=== PATIENT | female | born 1940 | race Caucasian/White ===

== ENCOUNTER 2016-06-20 09:33 | Outpatient (CLI) | payer MEDICARE, OTHER | END 2016-06-20 09:34 | disposition home or self-care (01) | DX: E11.9 Type 2 diabetes mellitus without complications (principal) ==

== ENCOUNTER 2016-08-17 05:55 | Day surgery (SDC) | payer MEDICARE, OTHER ==
[2016-08-17] MEDS ORDERED: LACTATED RINGERS 1,000 ML IV ONE (06:57)
[2016-08-17] MEDS ORDERED: fentaNYL 100 MCG/2 ML VIAL IVP ONE (07:26)
[2016-08-17] MEDS ORDERED: MIDAZOLAM 2 MG/2 ML VIAL IVP ONE (07:26)
[2016-08-17 08:26] VITALS: BP 128/66
== END 2016-08-17 05:56 | disposition home or self-care (01) ==
LOC: SDS 05:55
PROVIDERS: ATTEND Surgery
PROC: 0DBM8ZZ Excision of Descending Colon, Via Natural or Artificial Opening Endoscopic (ICD-10-PCS; 2016-08-17)
PROC: 0DBH8ZZ Excision of Cecum, Via Natural or Artificial Opening Endoscopic (ICD-10-PCS; principal; 2016-08-17 07:30)
DX: Z12.11 Encounter for screening for malignant neoplasm of colon (principal); D12.0 Benign neoplasm of cecum; D12.4 Benign neoplasm of descending colon; I10 Essential (primary) hypertension; E78.5 Hyperlipidemia, unspecified; G47.30 Sleep apnea, unspecified; E11.9 Type 2 diabetes mellitus without complications; K64.8 Other hemorrhoids; K64.4 Residual hemorrhoidal skin tags
CPT/HCPCS: 45380; J7120; 88305

== ENCOUNTER 2016-10-11 19:36 | Outpatient (CLI) | payer MEDICARE, OTHER ==
--- NOTE | 2016-10-12 08:27 | Ultrasound Report ---
EXAM: LEFT LOWER EXTREMITY VENOUS ULTRASOUND EXAM DATE: 10/11/2016 07:42 PM. CLINICAL HISTORY: DVT. COMPARISON: None. TECHNIQUE: Real-time sonographic vascular imaging was performed by the theatre director through the lower extremity utilizing both color-flow and Doppler spectral analysis. Multiple ocean import representative static jyoti ges were saved for review. FINDINGS: Common Femoral Vein (CFV): Normal. CFV-GSV Junction: Normal. Profunda Femoral Vein (PFV): Normal. Femoral Vein (FV) Prox: Normal. Femoral Vein (FV) Mid: Normal. Femoral Vein (FV) Dist: Suboptimally visualized. Popliteal Vein: Normal. Posterior Tibial Veins: Suboptimally visualized Peroneal Veins: Not visualized Contralateral Side CFV: Normal. Other: Medial left ankle soft tissue edema. Small ill-defined fluid collection over area of pain in t he deep medial left ankle possibly corresponding to a tendon sheath IMPRESSION: 1. No evidence of DVT 2. Distal superficial femoral vein and posterior tibial veins are suboptimally visualized and the per escobar veins were not visualized. This may be due to technical factors and patient characteristics. 3. Soft tissue edema and small ill-defined fluid collection corresponding to region of pain in the me dial left ankle deep soft tissues questionably associated with a tendon sheath. This could be evaluat ed with MRI as necessary. [facility] Referring Provider Line: [phone] SITE ID: [id number]
== END 2016-10-11 19:37 | disposition home or self-care (01) ==
LOC: DI 19:36
PROVIDERS: ATTEND Family Medicine
DX: M79.9 Soft tissue disorder, unspecified (principal)

== ENCOUNTER 2016-12-18 10:52 | Outpatient (CLI) | payer MEDICARE, OTHER ==
[2016-12-18 19:16] LABS: BASOPHILS % (AUTO) 0.5 %; EOSINOPHILS % (AUTO) 0.5 %; HCT - HEMATOCRIT 40.6 % (37.0-47.0); HGB - HEMOGLOBIN 13.3 g/dL (12.0-16.0); LYMPHOCYTES # (AUTO) 2.1 10^3/uL (1.5-3.5); LYMPHOCYTES % (AUTO) 36.3 %; MEAN CORPUSCULAR HEMOGLOBIN 32.3 pg (27.0-31.0); MEAN CORPUSCULAR HGB CONC 32.9 g/dL (32.0-36.0); MEAN CORPUSCULAR VOLUME 98.2 fL (81.0-99.0); MEAN PLATELET VOLUME 8.5 fL (7.9-10.8); MONOCYTES # (AUTO) 0.4 10^3/uL (0.0-1.0); MONOCYTES % (AUTO) 6.8 %; NEUTROPHILS # (AUTO) 3.2 10^3/uL (1.5-6.6); NEUTROPHILS % (AUTO) 55.9 %; NUCLEATED RED BLOOD CELLS AUTO 0.2 /100WBC; RED BLOOD COUNT 4.13 10^6/uL (4.20-5.40); UNCORRECTED WHITE BLOOD COUNT 5.7 x10^3/uL; WHITE BLOOD COUNT 5.7 x10^3/uL (4.8-10.8)
[2016-12-18 19:41] LABS: ALBUMIN/GLOBULIN RATIO 1.5 (1.0-2.2); BILIRUBIN,TOTAL 0.7 mg/dL (0.2-1.0); BUN - BLOOD UREA NITROGEN 23 mg/dL (6-20); CALCIUM 10.1 mg/dL (8.5-10.3); CARBON DIOXIDE - CO2 26 mmol/L (21-32); CHLORIDE 100 mmol/L (101-111); CHOL/HDL RATIO 3.1 (<4.4); CHOLESTEROL 194 mg/dL; CREATININE 0.7 mg/dL (0.4-1.0); GFR - MDRD 81 (>89); GLUCOSE 144 mg/dL (70-100); HDL CHOLESTEROL 62 mg/dL; LDL/HDL RATIO 1.5 (<4.4); POTASSIUM 4.5 mmol/L (3.5-5.0); SODIUM 137 mmol/L (135-145); TOTAL PROTEIN 7.7 g/dL (6.7-8.2); TRIGLYCERIDES 210 mg/dL; VLDL CHOLESTEROL 42 mg/dL
[2016-12-18 21:30] LABS: HEMOGLOBIN A1C 0.94 g/dL
== END 2016-12-18 10:53 | disposition home or self-care (01) ==
LOC: LAB.WCP 10:52
PROVIDERS: ATTEND Family Medicine
DX: E11.9 Type 2 diabetes mellitus without complications (principal)
CPT/HCPCS: 36415; 80053; 80061; 82043; 83036; 84443; 85025

== ENCOUNTER 2017-03-29 08:00 | Outpatient (CLI) | payer MEDICARE, OTHER ==
[2017-03-29 12:57] LABS: ALBUMIN 4.1 g/dL (3.2-5.5); ALBUMIN/GLOBULIN RATIO 1.4 (1.0-2.2); ALKALINE PHOSPHATASE 75 IU/L (42-121); ALT ALANINE AMINOTRANSFERASE 21 IU/L (10-60); AST ASPARTATE AMINOTRANSFERASE 22 IU/L (10-42); BILIRUBIN,TOTAL 0.5 mg/dL (0.2-1.0); BUN - BLOOD UREA NITROGEN 22 mg/dL (6-20); CALCIUM 9.5 mg/dL (8.5-10.3); CARBON DIOXIDE - CO2 26 mmol/L (21-32); CHLORIDE 105 mmol/L (101-111); CHOL/HDL RATIO 3.6 (<4.4); CHOLESTEROL 172 mg/dL; CREATININE 0.6 mg/dL (0.4-1.0); GFR - MDRD 97 (>89); GLUCOSE 154 mg/dL (70-100); HDL CHOLESTEROL 48 mg/dL; LDL CHOLESTEROL,CALCULATED 75 mg/dL; LDL/HDL RATIO 1.6 (<4.4); SODIUM 138 mmol/L (135-145); TOTAL PROTEIN 7.1 g/dL (6.7-8.2); VLDL CHOLESTEROL 49 mg/dL
[2017-03-29 13:19] LABS: HB2 TOTAL 13.4 g/dL; HEMOGLOBIN A1C 0.82 g/dL; HEMOGLOBIN A1C % 7.7 % (4.6-6.2)
== END 2017-03-29 08:01 | disposition home or self-care (01) ==
LOC: LAB.WCP 08:00
PROVIDERS: ATTEND Family Medicine
DX: E11.9 Type 2 diabetes mellitus without complications (principal)
CPT/HCPCS: 36415; 80053; 80061; 83036; 83721

== ENCOUNTER 2017-04-16 10:12 | Outpatient (CLI) | payer MEDICARE, OTHER ==
--- NOTE | 2017-04-18 13:53 | Mammography Report ---
DIGITAL SCREENING MAMMOGRAM: 04/16/2017 CLINICAL INDICATION: A 76-year-old with history of benign biopsies, for screening. COMPARISON: 03/2016, 05/2012, 03/2011, 03/2010. TECHNIQUE: Routine CC and MLO projections were obtained of the breasts. FINDINGS: Parenchymal tissue within the breasts is predominantly fatty replaced. There are no dominant masses, suspicious microcalcifications, or secondary signs of malignancy. In comparison to the previous studies, there are no significant changes. IMPRESSION: NO MAMMOGRAPHIC EVIDENCE OF MALIGNANCY. NO SIGNIFICANT INTERVAL CHANGES. RECOMMENDATION: Screening mammography is recommended annually. BIRADS category 1 - negative. STANDARD QUALIFYING STATEMENTS: 1. This examination was reviewed with the aid of Computed-Aided Detection (CAD). 2. A negative or benign imaging report should not delay biopsy if clinically suspicious findings are present. Consider surgical consultation if warranted. More than 5% of cancers are not identified by imaging. 3. Dense breasts may obscure an underlying neoplasm. TD: 04/18/2017 13:52
== END 2017-04-16 10:13 | disposition home or self-care (01) ==
LOC: DI 10:12
PROVIDERS: ATTEND Family Medicine
DX: Z12.31 Encounter for screening mammogram for malignant neoplasm of breast (principal)
CPT/HCPCS: 77067

== ENCOUNTER 2017-07-25 08:00 | Outpatient (CLI) | payer MEDICARE, OTHER ==
[2017-07-25 18:51] LABS: BASOPHILS % (AUTO) 0.2 %; EOSINOPHILS % (AUTO) 0.4 %; HGB - HEMOGLOBIN 13.2 g/dL (12.0-16.0); LYMPHOCYTES # (AUTO) 2.2 10^3/uL (1.5-3.5); LYMPHOCYTES % (AUTO) 34.9 %; MEAN CORPUSCULAR HEMOGLOBIN 32.2 pg (27.0-31.0); MEAN CORPUSCULAR HGB CONC 32.8 g/dL (32.0-36.0); MEAN CORPUSCULAR VOLUME 98.2 fL (81.0-99.0); MEAN PLATELET VOLUME 8.5 fL (7.9-10.8); MONOCYTES # (AUTO) 0.4 10^3/uL (0.0-1.0); MONOCYTES % (AUTO) 6.4 %; NEUTROPHILS # (AUTO) 3.6 10^3/uL (1.5-6.6); NEUTROPHILS % (AUTO) 58.1 %; PLT - PLATELET COUNT 220 10^3/uL (130-450); RED BLOOD COUNT 4.09 10^6/uL (4.20-5.40); RED CELL DISTRIBUTION WIDTH 15.3 % (12.0-15.0); WHITE BLOOD COUNT 6.2 x10^3/uL (4.8-10.8)
[2017-07-25 19:05] LABS: ALBUMIN 4.8 g/dL (3.2-5.5); ALBUMIN/GLOBULIN RATIO 1.6 (1.0-2.2); BILIRUBIN,TOTAL 0.8 mg/dL (0.2-1.0); CREATININE 0.6 mg/dL (0.4-1.0); TOTAL PROTEIN 7.8 g/dL (6.7-8.2)
== END 2017-07-25 08:01 ==
LOC: LAB.WCP 08:00
PROVIDERS: ATTEND Family Medicine
DX: R07.89 Other chest pain (principal)
CPT/HCPCS: 36415; 80053; 83690; 84484; 85025

== ENCOUNTER 2017-09-25 15:11 | Outpatient (CLI) | payer MEDICARE, OTHER | END 2017-09-25 15:12 | disposition home or self-care (01) | LOC: SC 15:11 | PROVIDERS: ATTEND Nurse Practitioner Family | DX: G47.33 Obstructive sleep apnea (adult) (pediatric) (principal) | CPT/HCPCS: 99204; G0463; 99212 ==

== ENCOUNTER 2017-09-27 15:27 | Outpatient (CLI) | payer MEDICARE, OTHER ==
[2017-09-27 18:54] LABS: BASOPHILS % (AUTO) 0.5 %; EOSINOPHILS % (AUTO) 0.4 %; HGB - HEMOGLOBIN 12.3 g/dL (12.0-16.0); LYMPHOCYTES # (AUTO) 2.5 10^3/uL (1.5-3.5); LYMPHOCYTES % (AUTO) 32.3 %; MEAN CORPUSCULAR HEMOGLOBIN 32.8 pg (27.0-31.0); MEAN CORPUSCULAR HGB CONC 33.2 g/dL (32.0-36.0); MEAN PLATELET VOLUME 7.8 fL (7.9-10.8); MONOCYTES # (AUTO) 0.6 10^3/uL (0.0-1.0); MONOCYTES % (AUTO) 7.8 %; NEUTROPHILS # (AUTO) 4.6 10^3/uL (1.5-6.6); PLT - PLATELET COUNT 249 10^3/uL (130-450); RED BLOOD COUNT 3.74 10^6/uL (4.20-5.40); RED CELL DISTRIBUTION WIDTH 14.6 % (12.0-15.0); WHITE BLOOD COUNT 7.8 x10^3/uL (4.8-10.8)
[2017-09-27 19:15] LABS: HB2 TOTAL 12.8 g/dL; HEMOGLOBIN A1C 0.9 g/dL; HEMOGLOBIN A1C % 8.6 % (4.6-6.2)
[2017-09-27 19:18] LABS: ALBUMIN 4.4 g/dL (3.2-5.5); ALBUMIN/GLOBULIN RATIO 1.3 (1.0-2.2); BILIRUBIN,TOTAL 0.6 mg/dL (0.2-1.0); CALCIUM 9.6 mg/dL (8.5-10.3); CREATININE 0.7 mg/dL (0.4-1.0); TOTAL PROTEIN 7.7 g/dL (6.7-8.2)
== END 2017-09-27 15:28 ==
LOC: LAB.WCP 15:27
PROVIDERS: ATTEND Family Medicine
DX: E11.9 Type 2 diabetes mellitus without complications (principal)
CPT/HCPCS: 36415; 80053; 83036; 85025

== ENCOUNTER 2017-12-27 10:12 | Outpatient (CLI) | payer MEDICARE, OTHER ==
[2017-12-27 19:53] LABS: BASOPHILS % (AUTO) 0.3 %; EOSINOPHILS % (AUTO) 0.5 %; HGB - HEMOGLOBIN 12.1 g/dL (12.0-16.0); LYMPHOCYTES % (AUTO) 34.4 %; MEAN CORPUSCULAR HEMOGLOBIN 31.7 pg (27.0-31.0); MEAN CORPUSCULAR HGB CONC 32.9 g/dL (32.0-36.0); MEAN CORPUSCULAR VOLUME 96.3 fL (81.0-99.0); MEAN PLATELET VOLUME 8.5 fL (7.9-10.8); MONOCYTES # (AUTO) 0.5 10^3/uL (0.0-1.0); MONOCYTES % (AUTO) 8.2 %; NEUTROPHILS # (AUTO) 3.2 10^3/uL (1.5-6.6); NEUTROPHILS % (AUTO) 56.6 %; PLT - PLATELET COUNT 226 10^3/uL (130-450); RED BLOOD COUNT 3.82 10^6/uL (4.20-5.40); WHITE BLOOD COUNT 5.7 x10^3/uL (4.8-10.8)
[2017-12-27 20:04] LABS: HB2 TOTAL 12.3 g/dL; HEMOGLOBIN A1C 0.81 g/dL; HEMOGLOBIN A1C % 8.2 % (4.6-6.2)
[2017-12-27 20:12] LABS: ALBUMIN 4.2 g/dL (3.2-5.5); ALBUMIN/GLOBULIN RATIO 1.4 (1.0-2.2); ALKALINE PHOSPHATASE 78 IU/L (42-121); ALT ALANINE AMINOTRANSFERASE 23 IU/L (10-60); AST ASPARTATE AMINOTRANSFERASE 23 IU/L (10-42); BILIRUBIN,TOTAL 0.6 mg/dL (0.2-1.0); BUN - BLOOD UREA NITROGEN 29 mg/dL (6-20); CALCIUM 9.6 mg/dL (8.5-10.3); CARBON DIOXIDE - CO2 24 mmol/L (21-32); CHLORIDE 102 mmol/L (101-111); CHOL/HDL RATIO 3.3 (<4.4); CHOLESTEROL 181 mg/dL; CREATININE 0.6 mg/dL (0.4-1.0); GFR - MDRD 97 (>89); GLUCOSE 202 mg/dL (70-100); HDL CHOLESTEROL 55 mg/dL; LDL CHOLESTEROL,CALCULATED 66 mg/dL; LDL/HDL RATIO 1.2 (<4.4); SODIUM 137 mmol/L (135-145); TOTAL PROTEIN 7.3 g/dL (6.7-8.2); URIC ACID 4.7 mg/dL (2.6-7.2); VLDL CHOLESTEROL 60 mg/dL
== END 2017-12-27 10:13 | disposition home or self-care (01) ==
LOC: LAB.WCP 10:12
PROVIDERS: ATTEND Family Medicine
DX: E11.9 Type 2 diabetes mellitus without complications (principal); M10.072 Idiopathic gout, left ankle and foot
CPT/HCPCS: 36415; 80053; 80061; 82043; 83036; 83721; 84550; 85025

== ENCOUNTER 2018-03-26 10:15 | Outpatient (CLI) | payer MEDICARE, OTHER ==
[2018-03-26 13:05] LABS: HB2 TOTAL 11.6 g/dL; HEMOGLOBIN A1C 0.74 g/dL
[2018-03-26 13:13] LABS: CALCIUM 9.5 mg/dL (8.5-10.3); CREATININE 0.7 mg/dL (0.4-1.0)
== END 2018-03-26 23:59 | disposition home or self-care (01) ==
LOC: LAB.WCP 10:15
PROVIDERS: ATTEND Family Medicine
DX: E11.9 Type 2 diabetes mellitus without complications (principal)
CPT/HCPCS: 36415; 80048; 82043; 83036

== ENCOUNTER 2018-06-13 13:47 | Outpatient (CLI) | payer MEDICARE, OTHER ==
--- NOTE | 2018-06-13 15:48 | XRAY Report ---
Reason: UNSPECIFIED FALL,LOW BACK PAIN ACUTE Procedure Date: 06/13/2018 Accession Number: [id number] / [id number] Procedure: WCP - Lumbar Spine 2 View CPT Code: FULL RESULT: EXAM: LUMBOSACRAL SPINE RADIOGRAPHY EXAM DATE: 06/13/2018 01:58 PM. CLINICAL HISTORY: Unspecified fall, low back pain, acute. COMPARISONS: None. TECHNIQUE: 2 views. FINDINGS: The examination is underpenetrated limiting evaluation. Maximum generator output was utilized. Alignment: Suggestion of mild dextroconvex lower lumbar spine scoliosis, centered about L4-L5. No listhesis. Bones: Five pfe-hfa-jqaawdl lumbar vertebral bodies are present. The bones are qualitatively osteopenic; this limits evaluation for underlying fractures or masses. No fracture is detected. Disks: Mild multilevel disk space narrowing with marginal osteophytosis. Facets: No degenerative changes. Sacroiliac Joints: Unremarkable. Soft Tissues: Calcifications of the aorta. IMPRESSION: Limited examination with mild multilevel degenerative disease. [facility]
== END 2018-06-13 13:48 | disposition home or self-care (01) ==
LOC: DI.WCP 13:47
PROVIDERS: ATTEND Family Medicine
DX: M51.37 Other intervertebral disc degeneration, lumbosacral region (principal); E11.9 Type 2 diabetes mellitus without complications
CPT/HCPCS: 36415; 72100; 83036

== ENCOUNTER 2018-06-13 14:28 | Outpatient (CLI) | payer MEDICARE, OTHER ==
[2018-06-13 21:25] LABS: HB2 TOTAL 12.3 g/dL; HEMOGLOBIN A1C 0.82 g/dL; HEMOGLOBIN A1C % 8.3 % (4.6-6.2)
== END 2018-06-13 14:29 | disposition home or self-care (01) ==
LOC: LAB.WCP 14:28
PROVIDERS: ATTEND Family Medicine
DX: E11.9 Type 2 diabetes mellitus without complications (principal)
CPT/HCPCS: 36415; 83036

== ENCOUNTER 2018-10-28 08:00 | Outpatient (CLI) | payer MEDICARE, OTHER ==
[2018-10-28 17:19] LABS: HGB - HEMOGLOBIN 11.9 g/dL (12.0-16.0); MEAN CORPUSCULAR HEMOGLOBIN 29.7 pg (27.0-31.0); MEAN CORPUSCULAR HGB CONC 31.7 g/dL (32.0-36.0); MEAN CORPUSCULAR VOLUME 93.5 fL (81.0-99.0); MEAN PLATELET VOLUME 9.6 fL (7.9-10.8); RED BLOOD COUNT 4.01 10^6/uL (4.20-5.40); RED CELL DISTRIBUTION WIDTH 15.3 % (12.0-15.0); WHITE BLOOD COUNT 8.9 x10^3/uL (4.8-10.8)
[2018-10-28 17:27] LABS: CALCIUM 9.2 mg/dL (8.5-10.3); CREATININE 0.9 mg/dL (0.4-1.0)
[2018-10-28 17:35] LABS: HB2 TOTAL 12.2 g/dL; HEMOGLOBIN A1C 0.74 g/dL; HEMOGLOBIN A1C % 7.7 % (4.6-6.2)
== END 2018-10-28 23:59 | disposition home or self-care (01) ==
LOC: LAB 08:00
PROVIDERS: ATTEND Family Medicine
DX: E11.9 Type 2 diabetes mellitus without complications (principal); R07.9 Chest pain, unspecified
CPT/HCPCS: 36415; 80048; 83036; 83880; 84484; 85027

== ENCOUNTER 2018-10-28 09:00 | Outpatient (CLI) | payer MEDICARE, OTHER ==
--- NOTE | 2018-10-29 15:27 | XRAY Report ---
Reason: CHEST PAIN Procedure Date: 10/28/2018 Accession Number: [id number] / [id number] Procedure: WCP - Chest 2 View X-Ray CPT Code: 50795 FULL RESULT: EXAM: CHEST RADIOGRAPHY EXAM DATE: 10/28/2018 03:56 PM. CLINICAL HISTORY: Chest pain. COMPARISON: CHEST 2 VIEW PA/LAT 06/07/2017 3:48 PM. TECHNIQUE: 2 views. FINDINGS: Lungs/Pleura: No focal opacities evident. No pleural effusion. No pneumothorax. Normal volumes. Mediastinum: Heart and mediastinal contours are unremarkable. Other: None. IMPRESSION: No acute consolidation is identified. [facility]
== END 2018-10-28 23:59 | disposition home or self-care (01) ==
LOC: DI.WCP 09:00 → EDSTATUS 13:19 → DI.WCP 23:59
PROVIDERS: ATTEND Family Medicine
DX: R07.9 Chest pain, unspecified (principal)
CPT/HCPCS: 71046

== ENCOUNTER 2019-01-17 08:00 | Outpatient (CLI) | payer MEDICARE, OTHER ==
[2019-01-17 18:58] LABS: CREATININE 0.9 mg/dL (0.4-1.0)
[2019-01-17 19:24] LABS: HB2 TOTAL 12.3 g/dL; HEMOGLOBIN A1C 0.88 g/dL; HEMOGLOBIN A1C % 8.7 % (4.6-6.2)
== END 2019-01-17 23:59 | disposition home or self-care (01) ==
LOC: LAB.WCP 08:00
PROVIDERS: ATTEND Family Medicine
DX: I10 Essential (primary) hypertension (principal); E11.9 Type 2 diabetes mellitus without complications
CPT/HCPCS: 36415; 80048; 83036

== ENCOUNTER 2019-01-28 15:51 | Outpatient (CLI) | payer MEDICARE, OTHER ==
[2019-01-28 16:57] VITALS: BP 140/70
--- NOTE | 2019-01-28 16:57 | SLEEP CARE CONSULTATION ---
Information from patient questionnaire entered by Yanelis Bonilla. I have reviewed and concur with the information entered by Yanelis Bonilla. This document represents the service I personally performed and the decisions made by me, Merced Amador, RN, MSN, FIELD [employer] OFFICER. History of Present Illness Previous diagnosis: Moderate, Obstructive Sleep Apnea-Hypopnea Syndrome AHI: 20.3 Reason for follow up: annual Equipment obtained from: [employer] (No supplies since set up in 2018. She has been using CPAP nightly since.) Mask style: Nasal (Dreamwear) Mask brand: Respironics Backup mask available: Yes Last cushion change: 6 weeks ago Prior sleep studies: Yes CPAP Compliance Data - Data Reviewed with Patient Average duration of nightly device use: 7H 58M Compliance rate %: 99.4 Current pressure setting (cmH2O): 10-15 Humidity settin Heated hose settin Average residual AHI: 1.4 Average large leak: 28s Subjective Patient concerns: reports: mask leak noise (occasionally), other (air too warm ). denies: aerophagia, mask discomfort, air blowing in eyes, condensation in mask/hose, nasal congestion, dry mouth, nose, throat, epistaxis Observed to snore while using device: No Current pressure setting perceived as: comfortable On therapy, patient: reports: sleeping better (she is unable to sleep without CPAP), awakening more refreshed, being more awake and alert during the day, more rested overall. denies: drowsiness while driving Initial [place] Sleepiness Scale score: 4 Current [place] Sleepiness Scale score: 9 Allergies and Home Medications Known drug allergies: Yes (see list) Home medication list reviewed: Yes Allergy and home medication list: Medication Name (generic/name brand) Strength & Dosage Fish Oil Concentrate 1000mg cap two daily Zyrtec Allergy 10mg tab one daily Allopurinol 300mg tab one daily Atorvastatin Calcium 40mg tab one daily Losartan Potassium 100mg tab one daily in the morning metoprolol succinate 25mg daily Lantus Solostar 100unit/ml SQ Pen-Injector Inject 20 units SQ daily in the pm Novolog Flex pen 100 unit/ml SQ Pen inject Inject 8 units SQ with dinner only Furosemide 40mg tab twice a day Potassium Chloride Jennifer ER 20meq tab one daily Wellbutrin SR 150mg tab one three times daily ProAir HFA 108 (90 base) mcg/act Two puffs every 4 hours prn wheeze Aspirin EC 81 mg tab one daily Omeprazole DR 20mg cap one daily Review of Systems Review of systems same as previous: No (medications changes after cardiac studies ) Physical Exam Blood Pressure: 140/70 Cuff size: long Heart Rate: 77 O2 Saturation: 95 Height: 5 ft 3 in Weight: 287 lb 6.4 oz Weight change since last visit: lost 6 pounds Body Mass Index: 50.9 BMI Classification: Obesity Class 3 Impression and Plan 1. Obstructive Sleep Apnea-Hypopnea Syndrome, moderate, with good treatment compliance and good apnea control. On CPAP therapy, the patient has better sleep quality and is more rested overall. Patient would like to transfer to [facility] where her spouse goes. She has not had supplies replaced since set up with [employer]. She had some spares to use. A [facility]O prescription will be made for transfer. To reduce hose warmth, I showed her how to adjust on a sample CPAP. Printed instructions given. She has lost some weight and praised for weight loss. Continued weight loss will reduce her apnea risk and CPAP pressure requirements as well as lower health risks associated with obesity. Her autoCPAP range could accomodate some more weight loss. Symptoms to report for pressure adjustment discussed. Patient's apnea severity and rationale for treatment to reduce apnea, improve sleep quality and reduce cardiovascular and cerebrovascular events was reviewed. I also reviewed the benefit of consistent device use of CPAP for hypertension, diabetes, depression/anxiety. * Continue autoCPAP pressure at [id number] * Transfer of care * Notify me if snoring with mask or feeling that the pressure is too much or too little * Continue to lose weight * Return for follow up in 1 year , or sooner if concerns arise I spent 100% of this 25 minute visit face to face with the patient with greater than 50% of this was spent time counseling the patient and coordination of care.
== END 2019-01-28 15:52 | disposition home or self-care (01) ==
LOC: SC 15:51
PROVIDERS: ATTEND Nurse Practitioner Family
DX: G47.33 Obstructive sleep apnea (adult) (pediatric) (principal); E66.9 Obesity, unspecified; Z68.43 Body mass index [BMI] 50.0-59.9, adult
CPT/HCPCS: 99214; G0463; 99212

== ENCOUNTER 2019-01-29 09:00 | Outpatient (CLI) | payer MEDICARE, OTHER ==
[2019-01-29 18:35] LABS: BASOPHILS % (AUTO) 0.3 %; EOSINOPHILS % (AUTO) 0.6 %; HGB - HEMOGLOBIN 12.4 g/dL (12.0-16.0); LYMPHOCYTES # (AUTO) 2.4 10^3/uL (1.5-3.5); LYMPHOCYTES % (AUTO) 34.2 %; MEAN CORPUSCULAR HEMOGLOBIN 30.4 pg (27.0-31.0); MEAN CORPUSCULAR HGB CONC 30.8 g/dL (32.0-36.0); MEAN CORPUSCULAR VOLUME 98.5 fL (81.0-99.0); MEAN PLATELET VOLUME 10.3 fL (7.9-10.8); MONOCYTES # (AUTO) 0.5 10^3/uL (0.0-1.0); MONOCYTES % (AUTO) 7.7 %; NEUTROPHILS % (AUTO) 56.5 %; PLT - PLATELET COUNT 253 10^3/uL (130-450); RED BLOOD COUNT 4.08 10^6/uL (4.20-5.40); RED CELL DISTRIBUTION WIDTH 15.1 % (12.0-15.0)
[2019-01-29 18:55] LABS: ALBUMIN 4.4 g/dL (3.2-5.5); ALBUMIN/GLOBULIN RATIO 1.3 (1.0-2.2); BILIRUBIN,TOTAL 0.3 mg/dL (0.2-1.0); CALCIUM 9.5 mg/dL (8.5-10.3); CREATININE 0.9 mg/dL (0.4-1.0); TOTAL PROTEIN 7.9 g/dL (6.7-8.2); URIC ACID 5.2 mg/dL (2.6-7.2)
== END 2019-01-29 23:59 | disposition home or self-care (01) ==
LOC: LAB.WCP 09:00
PROVIDERS: ATTEND Physician Assistant
DX: M10.9 Gout, unspecified (principal)
CPT/HCPCS: 36415; 80053; 84550; 85025; 85651

== ENCOUNTER 2019-01-29 15:05 | Outpatient (CLI) | payer MEDICARE, OTHER ==
--- NOTE | 2019-01-30 13:23 | XRAY Report ---
Reason: RIGHT 5TH TOE PAIN Procedure Date: 01/29/2019 Accession Number: [id number] / [id number] Procedure: WCP - Toe(s) RT CPT Code: Final Report FULL RESULT: EXAM: RIGHT TOE RADIOGRAPHY EXAM DATE: 01/29/2019 03:05 PM. CLINICAL HISTORY: RIGHT 5TH TOE PAIN. COMPARISON: None. TECHNIQUE: 3 views. FINDINGS: Bones: No fractures or bone lesions. Joints: Mild/moderate DJD at the first MTP joint and DIP joints of the second through fourth digits. Soft Tissues: Unremarkable. IMPRESSION: 1. No acute osseous abnormality. [facility]
== END 2019-01-29 23:59 | disposition home or self-care (01) ==
LOC: DI.WCP 15:05
PROVIDERS: ATTEND Physician Assistant
DX: M79.674 Pain in right toe(s) (principal); M10.9 Gout, unspecified
CPT/HCPCS: 36415; 73660; 80053; 84550; 85025; 85651

== ENCOUNTER 2019-04-17 10:11 | Outpatient (CLI) | payer MEDICARE, OTHER ==
[2019-04-17 12:52] LABS: BASOPHILS % (AUTO) 0.3 %; EOSINOPHILS % (AUTO) 0.5 %; HGB - HEMOGLOBIN 12.8 g/dL (12.0-16.0); LYMPHOCYTES # (AUTO) 2.1 10^3/uL (1.5-3.5); LYMPHOCYTES % (AUTO) 31.7 %; MEAN CORPUSCULAR HEMOGLOBIN 30.3 pg (27.0-31.0); MEAN CORPUSCULAR VOLUME 97.6 fL (81.0-99.0); MEAN PLATELET VOLUME 10.4 fL (7.9-10.8); MONOCYTES # (AUTO) 0.5 10^3/uL (0.0-1.0); MONOCYTES % (AUTO) 6.9 %; NEUTROPHILS % (AUTO) 60.1 %; PLT - PLATELET COUNT 256 10^3/uL (130-450); RED BLOOD COUNT 4.23 10^6/uL (4.20-5.40); RED CELL DISTRIBUTION WIDTH 14.7 % (12.0-15.0); WHITE BLOOD COUNT 6.6 x10^3/uL (4.8-10.8)
[2019-04-17 13:23] LABS: HB2 TOTAL 13.6 g/dL; HEMOGLOBIN A1C 1.11 g/dL; HEMOGLOBIN A1C % 9.6 % (4.6-6.2)
[2019-04-17 13:33] LABS: FERRITIN 16.6 ng/mL (11.0-306.8)
[2019-04-17 14:50] LABS: % IRON SATURATION 12 % (20-50); ALBUMIN 4.4 g/dL (3.2-5.5); ALBUMIN/GLOBULIN RATIO 1.3 (1.0-2.2); ALKALINE PHOSPHATASE 84 IU/L (42-121); ALT ALANINE AMINOTRANSFERASE 18 IU/L (10-60); AST ASPARTATE AMINOTRANSFERASE 22 IU/L (10-42); BILIRUBIN,TOTAL 0.5 mg/dL (0.2-1.0); BUN - BLOOD UREA NITROGEN 36 mg/dL (6-20); CALCIUM 9.9 mg/dL (8.5-10.3); CARBON DIOXIDE - CO2 25 mmol/L (21-32); CHLORIDE 100 mmol/L (101-111); CHOL/HDL RATIO 3.4 (<4.4); CHOLESTEROL 199 mg/dL; GFR - MDRD 54 (>89); GLUCOSE 221 mg/dL (70-100); HDL CHOLESTEROL 59 mg/dL; IRON 59 ug/dL (28-170); LDL CHOLESTEROL,CALCULATED 75 mg/dL; LDL/HDL RATIO 1.3 (<4.4); SODIUM 137 mmol/L (135-145); TOTAL IRON BINDING CAPACITY 512 ug/dL (250-450); TOTAL PROTEIN 7.8 g/dL (6.7-8.2); TRANSFERRIN 366 mg/dL (192-382); VLDL CHOLESTEROL 65 mg/dL
[2019-04-17 19:19] LABS: CREATININE,URINE 39.1 mg/dL
[2019-04-17 19:21] LABS: MICROALBUMIN,URINE < 0.2 mg/dL (0-300.0)
== END 2019-04-17 23:59 | disposition home or self-care (01) ==
LOC: LAB.WCP 10:11
PROVIDERS: ATTEND Family Medicine
DX: E11.9 Type 2 diabetes mellitus without complications (principal); D64.9 Anemia, unspecified
CPT/HCPCS: 36415; 80053; 80061; 82043; 82570; 82728; 83036; 83540; 83721; 84443; 84466; 85025

== ENCOUNTER 2020-05-03 08:13 | Outpatient (CLI) | payer MEDICARE, OTHER ==
--- NOTE | 2020-05-03 12:59 | XRAY Report ---
PROCEDURE: Cervical Spine 2 View INDICATIONS: ACUTE NECK PX TECHNIQUE: 4 view(s) of the cervical spine were acquired. COMPARISON: None. FINDINGS: Bones: No fractures or dislocations to the T1 level. The lateral masses of C1 appear intact on the odontoid view. Trace anterolisthesis C2 on 3, C3 on 4, and otherwise straightening of the normal cer vical lordosis. Moderate multilevel disc height loss and endplate osteophytes. Bilateral facet hypert rophy, most severe in the upper cervical spine. No suspicious bony lesions. Soft tissues: No prevertebral soft tissue swelling. IMPRESSION: 1. Upper cervical facet arthropathy results in trace multilevel spondylolisthesis. 2. Multilevel disc degeneration and endplate osteophytosis. 3. Consider MRI for further assessment of central canal and neural foramen. Reviewed by: Joana Peters MD on 05/03/2020 12:58 PM PST Approved by: Joana Peters MD on 05/03/2020 12:58 PM [facility] Station ID: [id number]
== END 2020-05-03 08:14 | disposition home or self-care (01) ==
LOC: DI.N 08:13
PROVIDERS: ATTEND Family Medicine
DX: M47.812 Spondylosis without myelopathy or radiculopathy, cervical region (principal); M43.12 Spondylolisthesis, cervical region; M50.30 Other cervical disc degeneration, unspecified cervical region; E11.9 Type 2 diabetes mellitus without complications; M10.9 Gout, unspecified
CPT/HCPCS: 36415; 80053; 80061; 82043; 82570; 83036; 83721; 84443; 84550; 85025

== ENCOUNTER 2020-05-03 08:16 | Outpatient (CLI) | payer MEDICARE, OTHER ==
[2020-05-03 11:42] LABS: BASOPHILS % (AUTO) 0.3 %; EOSINOPHILS % (AUTO) 0.5 %; HCT - HEMATOCRIT 40.1 % (37.0-47.0); HGB - HEMOGLOBIN 12.7 g/dL (12.0-16.0); LYMPHOCYTES % (AUTO) 35.2 %; MEAN CORPUSCULAR HEMOGLOBIN 32.7 pg (27.0-31.0); MEAN CORPUSCULAR HGB CONC 31.7 g/dL (32.0-36.0); MEAN CORPUSCULAR VOLUME 103.4 fL (81.0-99.0); MEAN PLATELET VOLUME 10.3 fL (7.9-10.8); MONOCYTES # (AUTO) 0.5 10^3/uL (0.0-1.0); MONOCYTES % (AUTO) 8.1 %; NEUTROPHILS # (AUTO) 3.2 10^3/uL (1.5-6.6); NEUTROPHILS % (AUTO) 55.4 %; PLT - PLATELET COUNT 209 10^3/uL (130-450); RED BLOOD COUNT 3.88 10^6/uL (4.20-5.40); RED CELL DISTRIBUTION WIDTH 13.7 % (12.0-15.0); WHITE BLOOD COUNT 5.8 x10^3/uL (4.8-10.8)
[2020-05-03 12:03] LABS: ALBUMIN 4.1 g/dL (3.2-5.5); ALBUMIN/GLOBULIN RATIO 1.2 (1.0-2.2); ALKALINE PHOSPHATASE 83 IU/L (42-121); ALT ALANINE AMINOTRANSFERASE 25 IU/L (10-60); AST ASPARTATE AMINOTRANSFERASE 25 IU/L (10-42); BILIRUBIN,TOTAL 0.7 mg/dL (0.2-1.0); BUN - BLOOD UREA NITROGEN 18 mg/dL (6-20); CALCIUM 9.7 mg/dL (8.5-10.3); CARBON DIOXIDE - CO2 25 mmol/L (21-32); CHLORIDE 102 mmol/L (101-111); CHOL/HDL RATIO 4.9 (<4.4); CHOLESTEROL 265 mg/dL; CREATININE 0.9 mg/dL (0.4-1.0); GFR - MDRD 60 (>89); GLUCOSE 192 mg/dL (70-100); HDL CHOLESTEROL 54 mg/dL; LDL CHOLESTEROL,CALCULATED 153 mg/dL; LDL/HDL RATIO 2.8 (<4.4); POTASSIUM 4.3 mmol/L (3.5-5.0); SODIUM 139 mmol/L (135-145); TOTAL PROTEIN 7.4 g/dL (6.7-8.2); TRIGLYCERIDES 290 mg/dL; URIC ACID 5.6 mg/dL (2.6-7.2); VLDL CHOLESTEROL 58 mg/dL
[2020-05-03 12:05] LABS: CREATININE,URINE 44.6 mg/dL; MICROALBUMIN,URINE < 0.2 mg/dL (0-300.0)
[2020-05-03 12:10] LABS: THYROID STIMULATING HORMONE 1.91 uIU/mL (0.34-5.60)
[2020-05-03 12:39] LABS: ESTIMATED AVERAGE GLUCOSE 200 mg/dL (70-100); HEMOGLOBIN A1c% 8.6 % (4.27-6.07)
== END 2020-05-03 08:17 | disposition home or self-care (01) ==
LOC: LAB.N 08:16
PROVIDERS: ATTEND Family Medicine
DX: E11.9 Type 2 diabetes mellitus without complications (principal); M10.9 Gout, unspecified
CPT/HCPCS: 36415; 80053; 80061; 82043; 82570; 83036; 83721; 84443; 84550; 85025

== ENCOUNTER 2020-05-06 09:01 | Outpatient (CLI) | payer MEDICARE, OTHER ==
[2020-05-06 09:30] VITALS: BP 149/83
--- NOTE | 2020-05-06 09:30 | SLEEP CARE CONSULTATION ---
Information from patient questionnaire entered by Jessie Romero. I have reviewed and concur with the information entered by Jessie Romero. This document represents the service I personally performed and the decisions made by me, Salma Schmitt ARNP. History of Present Illness Service Date and Time: 05/06/2020 0901 Previous diagnosis: Moderate, Obstructive Sleep Apnea-Hypopnea Syndrome AHI: 20.3 (in 2011)(10.8 in 2005) Reason for follow up: annual (last seen 01/2019) Equipment type: CPAP Equipment obtained from: [employer] (getting supplies okay sometimes, call all the time) Mask style: Nasal (Dreamwear) Backup mask available: Yes (old mask) Last cushion change: 2 months Prior sleep studies: Yes Year and Where: 2011 and 2005 - [facility] Type of Sleep Study: Polysomnography HPI additional information: DEBBY FERNANDEZ was diagnosed to have moderate, AHI 20.3, obstructive sleep apnea-hypopnea syndrome and returned today for CPAP therapy annual follow-up. CPAP Compliance Data - Data Reviewed with Patient Average duration of nightly device use: 8 hr 3 min Compliance rate %: 97.8 (180 days) Current pressure setting (cmH2O): 10-15 Humidity settin Heated hose settin Average residual AHI: 1.5 Average large leak: 0 Subjective Patient concerns: denies: aerophagia, mask discomfort, air blowing in eyes, mask leak noise, condensation in mask/hose, nasal congestion, dry mouth, nose, throat, epistaxis, other Observed to snore while using device: No (don't think so) Current pressure setting perceived as: comfortable On therapy, patient: reports: sleeping better, awakening more refreshed, being more awake and alert during the day, more rested overall. denies: drowsiness while driving Initial [place] Sleepiness Scale score: 12 (in 2010) Current [place] Sleepiness Scale score: 10 Allergies and Home Medications Home medication list reviewed: Yes (no changes) Review of Systems Review of systems same as previous: Yes (no changes) Physical Exam Blood Pressure: 149/83 Cuff size: wrist Heart Rate: 74 O2 Saturation: 98 Height: 5 ft 3 in Weight: 290 lb Body Mass Index: 51.3 BMI Classification: Morbidly Obese Impression and Plan 1. Obstructive Sleep Apnea-Hypopnea Syndrome, moderate, with good treatment compliance and good apnea control. On CPAP therapy, the patient has better sleep quality and is more rested overall. She recently lost a dear friend and is having a hard time dealing with her loss. She was her advocate during her health challenges and with her constantly before she . I advised her to give herself time to grieve. She has no issues or concerns with CPAP use. Patient currently patients BMI is 51.3. Obesity increases the risk of apnea, CPAP pr essure requirements and overall health risks especially cardiovascular and diabetes. Thus patient is advised to lose weight. Weight loss can be done with reducing portion size, reducing refined foods and balancing content with vegetables, fruit and whole grain foods. The patient's CPAP pressure range should accommodate some weight loss. Symptoms to report for additional pressure adjustment discussed. Patient's apnea severity and rationale for treatment to reduce apnea, improve sleep quality and reduce cardiovascular and cerebrovascular events was reviewed. I also reviewed the benefit of consistent device use of CPAP for hypertension, diabetes, and depression/anxiety. * Continue auto CPAP pressure at 10-15 cmH2O * Notify me if snoring with mask or feeling that the pressure is too much or too little * Attempt to lose weight * Call this office if any problems using CPAP * Return for follow up in 1 year, or sooner if concerns arise Counseling Topics: Spare mask, Weight loss health impact, Activity level Visit Type: In Office Time Spent with Patient (minutes): 20 Provider Statement: I spent 100% of the Face to Face Visit with the patient with greater than 50% spent counseling the patient and coordination of care.
== END 2020-05-06 09:02 | disposition home or self-care (01) ==
LOC: SC 09:01
PROVIDERS: ATTEND Nurse Practitioner Family
DX: G47.33 Obstructive sleep apnea (adult) (pediatric) (principal); E66.01 Morbid (severe) obesity due to excess calories; Z68.43 Body mass index [BMI] 50.0-59.9, adult
CPT/HCPCS: 99213; G0463; 99212

== ENCOUNTER 2020-07-26 | Outpatient (CLI) | payer MEDICARE, OTHER | END 2020-07-26 23:59 | disposition short-term general hospital (02) | DX: R07.9 Chest pain, unspecified (principal) | CPT/HCPCS: A0425; A0429; A0888 ==

== ENCOUNTER 2020-07-29 08:00 | Outpatient (CLI) | payer MEDICARE, OTHER ==
[2020-07-29 12:30] LABS: ESTIMATED AVERAGE GLUCOSE 203 mg/dL (70-100); HEMOGLOBIN A1c% 8.7 % (4.27-6.07)
[2020-07-29 12:34] LABS: ALBUMIN 4.3 g/dL (3.2-5.5); ALBUMIN/GLOBULIN RATIO 1.4 (1.0-2.2); ALKALINE PHOSPHATASE 92 IU/L (42-121); ALT ALANINE AMINOTRANSFERASE 19 IU/L (10-60); AST ASPARTATE AMINOTRANSFERASE 21 IU/L (10-42); BILIRUBIN,TOTAL 0.5 mg/dL (0.2-1.0); BUN - BLOOD UREA NITROGEN 26 mg/dL (6-20); CALCIUM 10.2 mg/dL (8.5-10.3); CARBON DIOXIDE - CO2 27 mmol/L (21-32); CHLORIDE 100 mmol/L (101-111); CHOL/HDL RATIO 3.7 (<4.4); CHOLESTEROL 193 mg/dL; CREATININE 0.8 mg/dL (0.4-1.0); GFR - MDRD 69 (>89); GLUCOSE 194 mg/dL (70-100); HDL CHOLESTEROL 52 mg/dL; LDL CHOLESTEROL,CALCULATED 79 mg/dL; LDL/HDL RATIO 1.5 (<4.4); POTASSIUM 4.3 mmol/L (3.5-5.0); SODIUM 137 mmol/L (135-145); TOTAL PROTEIN 7.4 g/dL (6.7-8.2); TRIGLYCERIDES 310 mg/dL; VLDL CHOLESTEROL 62 mg/dL
== END 2020-07-29 23:59 | disposition home or self-care (01) ==
LOC: LAB.WCP 08:00
PROVIDERS: ATTEND Family Medicine
DX: E11.9 Type 2 diabetes mellitus without complications (principal)
CPT/HCPCS: 36415; 80053; 80061; 83036; 83721

== ENCOUNTER 2020-11-02 12:07 | Outpatient (CLI) | payer MEDICARE, OTHER ==
[2020-11-02 18:08] LABS: BASOPHILS % (AUTO) 0.3 %; EOSINOPHILS % (AUTO) 0.4 %; HCT - HEMATOCRIT 41.8 % (37.0-47.0); HGB - HEMOGLOBIN 13.4 g/dL (12.0-16.0); LYMPHOCYTES # (AUTO) 2.3 10^3/uL (1.5-3.5); LYMPHOCYTES % (AUTO) 33.8 %; MEAN CORPUSCULAR HEMOGLOBIN 33.4 pg (27.0-31.0); MEAN CORPUSCULAR HGB CONC 32.1 g/dL (32.0-36.0); MEAN CORPUSCULAR VOLUME 104.2 fL (81.0-99.0); MEAN PLATELET VOLUME 10.2 fL (7.9-10.8); MONOCYTES # (AUTO) 0.6 10^3/uL (0.0-1.0); MONOCYTES % (AUTO) 8.2 %; NEUTROPHILS # (AUTO) 3.8 10^3/uL (1.5-6.6); NEUTROPHILS % (AUTO) 56.7 %; PLT - PLATELET COUNT 225 10^3/uL (130-450); RED BLOOD COUNT 4.01 10^6/uL (4.20-5.40); RED CELL DISTRIBUTION WIDTH 13.7 % (12.0-15.0); WHITE BLOOD COUNT 6.7 x10^3/uL (4.8-10.8)
[2020-11-02 18:25] LABS: ALBUMIN 4.4 g/dL (3.2-5.5); ALBUMIN/GLOBULIN RATIO 1.5 (1.0-2.2); ALKALINE PHOSPHATASE 80 IU/L (42-121); ALT ALANINE AMINOTRANSFERASE 23 IU/L (10-60); AST ASPARTATE AMINOTRANSFERASE 21 IU/L (10-42); BILIRUBIN,TOTAL 0.7 mg/dL (0.2-1.0); BUN - BLOOD UREA NITROGEN 27 mg/dL (6-20); CALCIUM 9.7 mg/dL (8.5-10.3); CARBON DIOXIDE - CO2 27 mmol/L (21-32); CHLORIDE 102 mmol/L (101-111); CHOL/HDL RATIO 3.3 (<4.4); CHOLESTEROL 176 mg/dL; CREATININE 0.9 mg/dL (0.4-1.0); GFR - MDRD 60 (>89); GLUCOSE 185 mg/dL (70-100); HDL CHOLESTEROL 53 mg/dL; LDL CHOLESTEROL,CALCULATED 54 mg/dL; POTASSIUM 4.3 mmol/L (3.5-5.0); SODIUM 140 mmol/L (135-145); TOTAL PROTEIN 7.4 g/dL (6.7-8.2); TRIGLYCERIDES 347 mg/dL; VLDL CHOLESTEROL 69 mg/dL
[2020-11-02 20:15] LABS: ESTIMATED AVERAGE GLUCOSE 171 mg/dL (70-100); HEMOGLOBIN A1c% 7.6 % (4.27-6.07)
== END 2020-11-02 23:59 | disposition home or self-care (01) ==
LOC: LAB.WCP 12:07
PROVIDERS: ATTEND Family Medicine
DX: E11.9 Type 2 diabetes mellitus without complications (principal)
CPT/HCPCS: 36415; 80053; 80061; 83036; 83721; 85025

== ENCOUNTER 2020-11-25 09:23 | Outpatient (CLI) | payer MEDICARE, OTHER ==
--- NOTE | 2020-11-25 10:02 | SLEEP CARE CONSULTATION ---
Information from patient questionnaire entered by Yanelis Bonilla. I have reviewed and concur with the information entered by Yanelis Bonilla. This document represents the service I personally performed and the decisions made by me, Salma Schmitt ARNP. History of Present Illness Service Date and Time: 11/25/2020922 Previous diagnosis: Moderate, Obstructive Sleep Apnea-Hypopnea Syndrome AHI: 20.3 (in 2011)(10.8 in 2005) Reason for follow up: six month (discuss CPAP recall) Equipment type: CPAP Equipment obtained from: [facility] (getting supplies okay sometimes, call all the time) Mask style: Nasal (Dreamwear) Mask brand: Respironics Backup mask available: No (will keep old mask when replaced) Last cushion change: 2 weeks ago Prior sleep studies: Yes Year and Where: 2011 and 2005 - [facility] Type of Sleep Study: Polysomnography HPI additional information: DEBBY FERNANDEZ was diagnosed to have moderate, AHI 20.3, obstructive sleep apnea-hypopnea syndrome and returned today with spouse for CPAP therapy six month follow-up. Questions about recall. Sleep Study - Results Type of Sleep Study: Polysomnography Prior sleep studies: Yes Year and Where: 2011 and 2005 - [facility] CPAP Compliance Data - Data Reviewed with Patient Average duration of nightly device use: 8 hours 9 minutes Compliance rate %: 96.7 Current pressure setting (cmH2O): 10-15 Humidity settin Heated hose settin Average residual AHI: 1.2 Average large leak: 5 seconds Subjective Missed days of use due to: reports: family emergency Patient concerns: reports: mask leak noise, other (device recall). denies: aerophagia, mask discomfort, air blowing in eyes, condensation in mask/hose, nasal congestion, dry mouth, nose, throat, epistaxis Observed to snore while using device: Yes (if mask slips off the face) Current pressure setting perceived as: comfortable On therapy, patient: reports: sleeping better, awakening more refreshed, being more awake and alert during the day, more rested overall. denies: drowsiness while driving Initial [place] Sleepiness Scale score: 12 (in 2010) Current [place] Sleepiness Scale score: 8 Allergies and Home Medications Home medication list reviewed: Yes (no changes) Review of Systems Review of systems same as previous: Yes (no changes) Physical Exam Blood Pressure: 115/57 Cuff size: wrist Heart Rate: 74 O2 Saturation: 94 Height: 5 ft 3 in Weight: 287 lb Body Mass Index: 50.8 BMI Classification: Morbidly Obese Impression and Plan 1. Obstructive Sleep Apnea-Hypopnea Syndrome, moderate, with good treatment compliance and good apnea control. On CPAP therapy, the patient has better sleep quality and is more rested overall. Patient has a DreamStation comes in to ask questions about the recall. Patient has already registered their device for the recall. Patient denies any black particles seen in machine or hoses, any unusual odors coming from device. Patient has not experienced any physical symptoms such as upper airway irritation, headache, skin or eye irritation, asthma, nausea/vomiting, difficulty breathing or chest pain. Patient informed that they may use an inline CPAP filter that they can obtain online to reduce chance of any particles being inhaled or ingested. We discussed thoroughly the health risks of not using the CPAP versus continuing use with the filter in place. If patient is not able to sleep due to waking up choking, gasping for air or other respiratory distress that they may decide to continue using it until it is either replaced or repaired. Patient was encouraged to lose weight for their overall health and to reduce apneas. Patient voiced understanding and agreement with plan. Patient's apnea severity and rationale for treatment to reduce apnea, improve sleep quality and reduce cardiovascular and cerebrovascular events was reviewed. I also reviewed the benefit of consistent device use of CPAP for hypertension, diabetes, depression and anxiety. * Continue auto CPAP pressure at 10-15 cmH2O * Notify me if snoring with mask or feeling that the pressure is too much or too little * Attempt to lose weight * Call this office if any problems using CPAP * Return for follow up in 1 year, or sooner if concerns arise Counseling Topics: Spare mask, Weight loss health impact Visit Type: In Office Time Spent with Patient (minutes): 20 Provider Statement: I spent 100% of the Face to Face Visit with the patient with greater than 50% spent counseling the patient and coordination of care.
[2020-11-25 10:03] VITALS: BP 115/57
== END 2020-11-25 09:24 | disposition home or self-care (01) ==
LOC: SC 09:23
PROVIDERS: ATTEND Nurse Practitioner Family
DX: G47.33 Obstructive sleep apnea (adult) (pediatric) (principal); E66.01 Morbid (severe) obesity due to excess calories; Z68.43 Body mass index [BMI] 50.0-59.9, adult
CPT/HCPCS: 99213; G0463; 99212

== ENCOUNTER 2021-01-20 11:01 | Outpatient (CLI) | payer MEDICARE, OTHER | END 2021-01-20 11:02 | disposition EMS.NT | LOC: EMS 11:01 | DX: S00.31XA Abrasion of nose, initial encounter (principal); W10.9XXA Fall (on) (from) unspecified stairs and steps, initial encounter; Y93.89 Activity, other specified; Y92.008 Other place in unspecified non-institutional (private) residence as the place of occurrence of the external cause; M25.532 Pain in left wrist ==

== ENCOUNTER 2021-03-15 08:00 | Outpatient (CLI) | payer MEDICARE, OTHER ==
[2021-03-15 12:01] LABS: BASOPHILS % (AUTO) 0.3 %; EOSINOPHILS % (AUTO) 0.3 %; HCT - HEMATOCRIT 41.8 % (37.0-47.0); HGB - HEMOGLOBIN 13.5 g/dL (12.0-16.0); LYMPHOCYTES # (AUTO) 2.3 10^3/uL (1.5-3.5); LYMPHOCYTES % (AUTO) 32.2 %; MEAN CORPUSCULAR HEMOGLOBIN 33.1 pg (27.0-31.0); MEAN CORPUSCULAR HGB CONC 32.3 g/dL (32.0-36.0); MEAN CORPUSCULAR VOLUME 102.5 fL (81.0-99.0); MONOCYTES # (AUTO) 0.5 10^3/uL (0.0-1.0); MONOCYTES % (AUTO) 6.4 %; NEUTROPHILS # (AUTO) 4.2 10^3/uL (1.5-6.6); NEUTROPHILS % (AUTO) 60.1 %; PLT - PLATELET COUNT 215 10^3/uL (130-450); RED BLOOD COUNT 4.08 10^6/uL (4.20-5.40); RED CELL DISTRIBUTION WIDTH 13.8 % (12.0-15.0); WHITE BLOOD COUNT 7.1 x10^3/uL (4.8-10.8)
[2021-03-15 12:47] LABS: ALBUMIN 4.2 g/dL (3.2-5.5); ALBUMIN/GLOBULIN RATIO 1.3 (1.0-2.2); ALKALINE PHOSPHATASE 88 IU/L (42-121); ALT ALANINE AMINOTRANSFERASE 17 IU/L (10-60); AST ASPARTATE AMINOTRANSFERASE 19 IU/L (10-42); BILIRUBIN,TOTAL 0.6 mg/dL (0.2-1.0); BUN - BLOOD UREA NITROGEN 27 mg/dL (6-20); CALCIUM 9.6 mg/dL (8.5-10.3); CARBON DIOXIDE - CO2 25 mmol/L (21-32); CHLORIDE 100 mmol/L (101-111); CHOL/HDL RATIO 3.1 (<4.4); CHOLESTEROL 176 mg/dL; CREATININE 0.9 mg/dL (0.4-1.0); GFR - MDRD 60 (>89); GLUCOSE 252 mg/dL (70-100); HDL CHOLESTEROL 57 mg/dL; LDL CHOLESTEROL,CALCULATED 78 mg/dL; LDL/HDL RATIO 1.4 (<4.4); POTASSIUM 3.8 mmol/L (3.5-5.0); SODIUM 136 mmol/L (135-145); TOTAL PROTEIN 7.5 g/dL (6.7-8.2); TRIGLYCERIDES 203 mg/dL; URIC ACID 5.4 mg/dL (2.6-7.2); VLDL CHOLESTEROL 41 mg/dL
[2021-03-15 13:00] LABS: ESTIMATED AVERAGE GLUCOSE 169 mg/dL (70-100); HEMOGLOBIN A1c% 7.5 % (4.27-6.07)
== END 2021-03-15 23:59 ==
LOC: LAB.WCP 08:00
PROVIDERS: ATTEND Family Medicine
DX: E11.9 Type 2 diabetes mellitus without complications (principal)
CPT/HCPCS: 36415; 80053; 80061; 83036; 83721; 84550; 85025

== ENCOUNTER 2021-03-28 08:09 | Outpatient (CLI) | payer MEDICARE, OTHER ==
--- NOTE | 2021-03-28 11:14 | DEXA Report ---
PROCEDURE: Dexa Spine and/or Hip INDICATIONS: OSTEOPENIA TECHNIQUE: Dual energy x-ray absorptiometry (DXA) was performed on a GloNav System. Regions measur ed are the AP Spine, femoral neck, and if needed forearm. COMPARISON: None. FINDINGS: Lumbar Spine: Bone Mineral Density 1.343 g/cm/cm,T score 1.4. Left Hip: Bone Mineral Density 0.967 g/cm/cm,T score -0.3. Left Femoral Neck: Bone Mineral Density 0.869 g/cm/cm, T score -1.2. (T score greater or equal to -1.0: NORMAL) (T score from -1.1 to -2.4: OSTEOPENIA) (T score less than or equal to -2.5 to: OSTEOPOROSIS) Impression: Osteopenia. Patients with diagnosis of osteoporosis or osteopenia should have regular bone mineral density assess ment. For those eligible for Medicare, routine testing is allowed once every 2 years. Testing frequ ency can be increased for patients who have rapidly progressing disease or for those who are receivin g medical therapy to restore bone mass. Reviewed by: Robbie Kemp MD on 03/28/2021 11:13 AM PST Approved by: Robbie Kemp MD on 03/28/2021 11:13 AM PST Station ID: [id number]
== END 2021-03-28 08:10 | disposition home or self-care (01) ==
LOC: DI 08:09
PROVIDERS: ATTEND Family Medicine
DX: M85.88 Other specified disorders of bone density and structure, other site (principal)

== ENCOUNTER 2021-09-29 13:19 | Outpatient (CLI) | payer MEDICARE, OTHER ==
--- NOTE | 2021-09-30 12:35 | Mammography Report ---
BILATERAL DIGITAL SCREENING MAMMOGRAM 3D/2D: 09/29/2021 CLINICAL: Routine screening. Comparison is made to exams dated: 03/14/2016 mammogram - [facility], 04/16/2017 mammogram - [facility], 05/17/2012 mammogram, and 03/31/2011 mammogram - [facility]. The tissue of both breasts is predominantly fatty. No significant masses, calcifications, or other findings are seen in either breast. There has been no significant interval change. IMPRESSION: NEGATIVE There is no mammographic evidence of malignancy. A 1 year screening mammogram is recommended. Based on the Tyrer Cuzick model (a risk assessment model) the patients lifetime risk is 0.7% and her 10 year risk is 0.0%. According to the ACR, ACS, and NCCN guidelines, an annual breast MRI exam yohan g with mammogram is recommended if the patients lifetime risk is 20% or greater. This exam was interpreted at Station ID: [id number]. NOTE: For mammograms, a report in lay terms will be sent to the patient. Approximately 15% of breast malignancies will not be visualized mammographically. In the management of a palpable breast mass, a negative mammogram must not discourage biopsy of a clinically suspicious lesion. Electronically Signed By: Peewee Coe acr/ericrad:09/29/2021 16:31:03 ACR BI-RADS Category 1: Negative 3341F PARENCHYMAL PATTERN: (F) - The breast(s) demonstrate(s) diffuse fatty replacement. BI-RADS CATEGORY: (1) - 1 RECOMMENDATION: (ANNUAL) - Recommend routine annual screening mammography. [id number] 1 year screening LATERALITY: (B)
== END 2021-09-29 13:20 | disposition home or self-care (01) ==
LOC: DI.N 13:19
PROVIDERS: ATTEND Physician Assistant
DX: Z12.31 Encounter for screening mammogram for malignant neoplasm of breast (principal)

== ENCOUNTER 2021-12-30 10:30 | Outpatient (CLI) | payer MEDICARE, OTHER ==
--- NOTE | 2021-12-30 12:47 | XRAY Report ---
PROCEDURE: Lumbar Spine 2 View INDICATIONS: LOW BACK PAIN,CHRONIC,LT HIP JOINT PX TECHNIQUE: 4 views of the lumbar spine were acquired. COMPARISON: None. FINDINGS: Bones: 5 grd-gzp-wjiblfz vertebrae are present. Multilevel disc space narrowing is seen. There is f acet arthrosis in the lower lumbar spine. Grade 1 anterolisthesis of L4-5. Anterior osteophytes at mu ltiple levels. Mild rightward curvature of the lumbar spine. There is normal bony alignment. No vert ebral body compression fractures. No suspicious bony lesions. Soft tissues: Overlying bowel gas pattern is normal. No suspicious soft tissue calcifications. IMPRESSION: 1. No acute abnormality of the lumbar spine. 2. Disc space narrowing of L2-3 and L3-4 consistent with disc disease. 3. Facet arthrosis in the lower lumbar spine with resulting grade 1 anterolisthesis of L4-5. 4. Mild rightward curvature of the lumbar spine. Reviewed by: Peewee Coe on 12/30/2021 12:45 PM PDT Approved by: Peewee Coe on 12/30/2021 12:45 PM PDT Station ID: [id number]
--- NOTE | 2021-12-30 12:48 | XRAY Report ---
PROCEDURE: Hip w/Pelvis 2-3V LT INDICATIONS: LOW BACK PAIN,CHRONIC,LT HIP JOINT PX TECHNIQUE: AP pelvis with lateral view(s) of the left hip(s). COMPARISON: None. FINDINGS: Bones: No fractures or dislocations. Pelvic ring appears intact. No suspicious bony lesions. Ther e are degenerative changes of both hips. Soft tissues: The visualized bowel gas pattern is normal. No suspicious soft tissue calcifications. IMPRESSION: Degenerative changes of both hips consistent with osteoarthritis. Reviewed by: Peewee Coe on 12/30/2021 12:47 PM PDT Approved by: Peewee Coe on 12/30/2021 12:47 PM PDT Station ID: [id number]
== END 2021-12-30 10:31 | disposition home or self-care (01) ==
LOC: DI 10:30
PROVIDERS: ATTEND Nurse Practitioner
DX: M47.816 Spondylosis without myelopathy or radiculopathy, lumbar region (principal); M43.16 Spondylolisthesis, lumbar region; M43.9 Deforming dorsopathy, unspecified; M16.0 Bilateral primary osteoarthritis of hip

== ENCOUNTER 2022-02-08 09:57 | Outpatient (CLI) | payer MEDICARE, OTHER ==
[2022-02-08 10:36] VITALS: BP 118/60
--- NOTE | 2022-02-08 10:36 | SLEEP CARE CONSULTATION ---
Information from patient questionnaire entered by Fany Alexandra. I have reviewed and concur with the information entered by Fany Alexandra. This document represents the service I personally performed and the decisions made by me, Salma Schmitt ARNP. History of Present Illness Service Date and Time: 02/08/2022 0957 Previous diagnosis: Moderate, Obstructive Sleep Apnea-Hypopnea Syndrome AHI: 20.3 (in 2011)(10.8 in 2005) Reason for follow up: annual (LAST SEEN 11/2020) Accompanied by: Spouse Equipment type: CPAP (Dreamstation 2) Equipment obtained from: [employer] (getting supplies) Mask style: Nasal (Dreamwear) Mask brand: Respironics Backup mask available: Yes (old mask) Last cushion change: 1 month Prior sleep studies: Yes Year and Where: 2011 and 2005 - [facility] Type of Sleep Study: Polysomnography HPI additional information: DEBBY FERNANDEZ was diagnosed to have moderate, AHI 20.3, obstructive sleep apnea-hypopnea syndrome and returned today with spouse for CPAP therapy annual follow-up. Sleep Study - Results Type of Sleep Study: Polysomnography [facility]: Yes [facility] Compliance Data - Data Reviewed with Patient Average duration of nightly device use: 8 HRS 21 MIN 55 SEC Compliance rate %: 99.4 (08/11/21-02/06/22; 178/180 days used) Current pressure setting (cmH2O): 10-15 Average residual AHI: 1.2 Central apnea: 0.1 Obstructive apnea: 0.7 Hypopnea: 0.4 Subjective Missed days of use due to: reports: other (power outage) Patient concerns: reports: other (air is too warm). denies: aerophagia, mask discomfort, air blowing in eyes, mask leak noise, condensation in mask/hose, nasal congestion, dry mouth, nose, throat, epistaxis Observed to snore while using device: No Current pressure setting perceived as: comfortable On therapy, patient: reports: sleeping better, awakening more refreshed, being more awake and alert during the day, more rested overall. denies: drowsiness while driving Initial Bent Sleepiness Scale score: 12 (in 2010) Current Bent Sleepiness Scale score: 8 (02/08/2022) Allergies and Home Medications Drug allergies reviewed: Yes (metformin, opioids - morphine analogues) Home medication list reviewed: Yes (no changes) Review of Systems Review of systems same as previous: Yes (no changes) Physical Exam Vital signs obtained and entered by: FANY Goncalves MA Blood Pressure: 118/60 (LEFT ARM) Cuff size: long Heart Rate: 78 O2 Saturation: 95 Height: 5 ft 4 in Weight: 284 lb 3.2 oz Body Mass Index: 48.7 BMI Classification: Morbidly Obese Impression and Plan 1. Obstructive Sleep Apnea-Hypopnea Syndrome, moderate, with good treatment compliance and good apnea control. On CPAP therapy, the patient has better sleep quality and is more rested overall. [] Patient's apnea severity and rationale for treatment to reduce apnea, improve sleep quality and reduce cardiovascular and cerebrovascular events was reviewed. I also reviewed the benefit of consistent device use of CPAP for hypertension, diabetes, depression and anxiety. 2. Obesity, unspecified. Currently patients BMI is 48.7. Obesity increases the risk of apnea, CPAP pressure requirements and overall health risks especially cardiovascular and diabetes. Thus patient is advised to lose weight. * Continue auto CPAP pressure at 10-15 cmH2O * Update supplies * Notify me if snoring with mask or feeling that the pressure is too much or too little * Attempt to lose weight * Call this office if any problems using CPAP * Return for follow up in 1 year, or sooner if concerns arise Counseling Topics: Spare mask, Weight loss health impact Visit Type: In Office Time Spent with Patient (minutes): 20 Provider Statement: I spent 100% of the Face to Face Visit with the patient with greater than 50% spent counseling the patient and coordination of care.
== END 2022-02-08 09:58 | disposition home or self-care (01) ==
LOC: SC 09:57
PROVIDERS: ATTEND Nurse Practitioner Family
DX: G47.33 Obstructive sleep apnea (adult) (pediatric) (principal); E66.01 Morbid (severe) obesity due to excess calories; Z68.42 Body mass index [BMI] 45.0-49.9, adult
CPT/HCPCS: 99213; G0463; 99212

== ENCOUNTER 2022-04-08 08:00 | Outpatient (CLI) | payer MEDICARE, OTHER | END 2022-04-08 23:59 | disposition home or self-care (01) | LOC: LAB.N 08:00 | PROVIDERS: ATTEND Physician Assistant | DX: N64.52 Nipple discharge (principal) | CPT/HCPCS: 87070; 87205 ==

== ENCOUNTER 2022-04-28 10:54 | Outpatient (CLI) | payer MEDICARE, OTHER ==
--- NOTE | 2022-05-01 09:51 | Ultrasound Report ---
LIMITED ULTRASOUND OF LEFT BREAST: 04/28/2022 CLINICAL: Bloody nipple discharge left breast. Comparison is made to exams dated: 04/28/2022 mammogram, 09/29/2021 mammogram, 04/16/2017 mammogram - [facility], and 03/14/2016 mammogram - [facility]. Real-time ultrasound of the left breast retroareolar was performed. Adair scale images of the real-t keny examination were reviewed. No significant abnormalities were seen sonographically in the left breast. IMPRESSION: INCOMPLETE: NEEDS ADDITIONAL IMAGING EVALUATION There is no abnormality seen in the left breast to correspond with the bloody discharge from the nipp le in the sub-areolar depth. Given the risk of occult malignancy, contrast-enhanced breast MRI recomm ended is recommended in addition to clinical follow up. This exam was interpreted at Station ID: [id number]. Electronically Signed By: Gabriel Montero M.D. ar/:04/28/2022 12:56:45 Ultrasound BI-RADS: 0 Indeterminate BI-RADS CATEGORY: (0) - 0 MRI [id number] Immediate follow-up LATERALITY: (B)
--- NOTE | 2022-05-01 09:51 | Mammography Report ---
UNILATERAL LEFT DIGITAL DIAGNOSTIC MAMMOGRAM 3D/2D: 04/28/2022 CLINICAL: Bloody nipple discharge left breast. Comparison is made to exams dated: 09/29/2021 mammogram, 04/16/2017 mammogram - [facility], and 03/14/[address] mammogram - [facility]. The left breast is almost entirely fatty (category a/<25% glandular tissue). There is nipple retraction in the left breast, which is stable when compared to the prior exams. No significant masses, calcifications, or other findings are seen in the breast. IMPRESSION: INCOMPLETE: NEEDS ADDITIONAL IMAGING EVALUATION There is no abnormality seen in the left breast to correspond with the bloody discharge from the nipp le in the sub-areolar depth, however, ultrasound is recommended. Based on the Tyrer Cuzick model (a risk assessment model) the patients lifetime risk is 0.3% and her 10 year risk is 0.0%. According to the ACR, ACS, and NCCN guidelines, an annual breast MRI exam yohan g with mammogram is recommended if the patients lifetime risk is 20% or greater. This exam was interpreted at Station ID: [id number]. NOTE: For mammograms, a report in lay terms will be sent to the patient. Approximately 15% of breast malignancies will not be visualized mammographically. In the management of a palpable breast mass, a negative mammogram must not discourage biopsy of a clinically suspicious lesion. Electronically Signed By: Gabriel Montero M.D. ar/:04/28/2022 12:57:56 ACR BI-RADS Category 0: Incomplete 3340F PARENCHYMAL PATTERN: (F) - The breast(s) demonstrate(s) diffuse fatty replacement. BI-RADS CATEGORY: (0) - 0 Ultrasound [id number] Immediate follow-up LATERALITY: (L)
== END 2022-04-28 10:55 | disposition home or self-care (01) ==
LOC: DI 10:54
PROVIDERS: ATTEND Physician Assistant
DX: N64.52 Nipple discharge (principal)

== ENCOUNTER 2022-08-03 08:00 | Outpatient (CLI) | payer MEDICARE, OTHER | END 2022-08-03 23:59 | disposition home or self-care (01) | LOC: LAB.N 08:00 | PROVIDERS: ATTEND Physician Assistant | DX: U07.1 COVID-19 (principal) ==

== ENCOUNTER 2022-11-08 09:42 | Outpatient (CLI) | payer MEDICARE, OTHER ==
[2022-11-08 12:01] LABS: BASOPHILS % (AUTO) 0.4 %; EOSINOPHILS % (AUTO) 0.7 %; HCT - HEMATOCRIT 40.1 % (37.0-47.0); HGB - HEMOGLOBIN 12.9 g/dL (12.0-16.0); LYMPHOCYTES # (AUTO) 2.2 10^3/uL (1.5-3.5); LYMPHOCYTES % (AUTO) 39.7 %; MEAN CORPUSCULAR HEMOGLOBIN 32.9 pg (27.0-31.0); MEAN CORPUSCULAR HGB CONC 32.2 g/dL (32.0-36.0); MEAN CORPUSCULAR VOLUME 102.3 fL (81.0-99.0); MEAN PLATELET VOLUME 10.3 fL (7.9-10.8); MONOCYTES # (AUTO) 0.5 10^3/uL (0.0-1.0); MONOCYTES % (AUTO) 8.7 %; NEUTROPHILS # (AUTO) 2.7 10^3/uL (1.5-6.6); NEUTROPHILS % (AUTO) 49.4 %; PLT - PLATELET COUNT 201 10^3/uL (130-450); RED BLOOD COUNT 3.92 10^6/uL (4.20-5.40); RED CELL DISTRIBUTION WIDTH 13.8 % (12.0-15.0); WHITE BLOOD COUNT 5.4 x10^3/uL (4.8-10.8)
[2022-11-08 12:31] LABS: ALBUMIN 4.5 g/dL (3.2-5.5); ALBUMIN/GLOBULIN RATIO 1.9 (1.0-2.2); ALKALINE PHOSPHATASE 90 IU/L (42-121); ALT ALANINE AMINOTRANSFERASE 21 IU/L (10-60); AST ASPARTATE AMINOTRANSFERASE 22 IU/L (10-42); BILIRUBIN,TOTAL 0.5 mg/dL (0.2-1.0); BUN - BLOOD UREA NITROGEN 17 mg/dL (6-20); CALCIUM 10.1 mg/dL (8.5-10.3); CARBON DIOXIDE - CO2 28 mmol/L (21-32); CHLORIDE 105 mmol/L (101-111); CHOL/HDL RATIO 3.2 (<4.4); CHOLESTEROL 183 mg/dL; CREATININE 0.8 mg/dL (0.6-1.3); GFR - MDRD 69 (>89); GLUCOSE 188 mg/dL (74-104); HDL CHOLESTEROL 58 mg/dL; LDL CHOLESTEROL,CALCULATED 72 mg/dL; LDL/HDL RATIO 1.2 (<4.4); POTASSIUM 4.5 mmol/L (3.5-4.5); SODIUM 139 mmol/L (135-145); TOTAL PROTEIN 6.9 g/dL (6.4-8.9); TRIGLYCERIDES 264 mg/dL (48-352); VLDL CHOLESTEROL 53 mg/dL
[2022-11-08 13:52] LABS: THYROID STIMULATING HORMONE 2.11 uIU/mL (0.34-5.60)
[2022-11-08 14:03] LABS: ESTIMATED AVERAGE GLUCOSE 163 mg/dL (70-100); HEMOGLOBIN A1c% 7.3 % (4.27-6.07)
== END 2022-11-08 09:43 | disposition home or self-care (01) ==
LOC: LAB.N 09:42
PROVIDERS: ATTEND Physician Assistant
DX: E11.9 Type 2 diabetes mellitus without complications (principal)
CPT/HCPCS: 36415; 80053; 80061; 83036; 83721; 84443; 85025

== ENCOUNTER 2023-03-09 09:41 | Outpatient (CLI) | payer MEDICARE, OTHER ==
[2023-03-09 12:31] LABS: CALCIUM 9.6 mg/dL (8.5-10.3); CREATININE 0.8 mg/dL (0.6-1.3); POTASSIUM 4.5 mmol/L (3.5-4.5)
[2023-03-09 12:32] LABS: ESTIMATED AVERAGE GLUCOSE 171 mg/dL (70-100); HEMOGLOBIN A1c% 7.6 % (4.27-6.07)
[2023-03-09 12:44] LABS: CREATININE,URINE 31.4 mg/dL; MICROALBUM/CREATININE RATIO,UR 22.3 ug/mg (<30.0); MICROALBUMIN,URINE 0.7 mg/dL
== END 2023-03-09 09:42 | disposition home or self-care (01) ==
LOC: LAB.N 09:41
PROVIDERS: ATTEND Physician Assistant
DX: E11.9 Type 2 diabetes mellitus without complications (principal)
CPT/HCPCS: 36415; 80048; 82043; 82570; 83036

== ENCOUNTER 2023-08-02 08:00 | Outpatient (CLI) | payer MEDICARE, OTHER | END 2023-08-02 23:59 | disposition home or self-care (01) | LOC: LAB.N 08:00 | PROVIDERS: ATTEND Physician Assistant Medical | DX: N30.00 Acute cystitis without hematuria (principal) | CPT/HCPCS: 87086; 87181 ==

== ENCOUNTER 2023-08-02 10:15 | Outpatient (CLI) | payer MEDICARE, OTHER ==
--- NOTE | 2023-08-02 12:00 | XRAY Report ---
PROCEDURE: Chest 2V INDICATIONS: ACUTE COUGH TECHNIQUE: 2 views of the chest were acquired. COMPARISON: 10/28/2018. FINDINGS: Surgical changes and devices: None. Lungs and pleura: No pleural effusions or pneumothorax. Lungs are clear. Mediastinum: Mediastinal contours appear normal. Heart size is normal. Bones and chest wall: No suspicious bony lesions. Overlying soft tissues appear unremarkable. IMPRESSION: No acute cardiopulmonary process. Reviewed by: Hayes Odonnell MD on 08/02/2023 11:59 AM PDT Approved by: Hayes Odonnell MD on 08/02/2023 11:59 AM PDT Station ID: [id number]
== END 2023-08-02 10:30 | disposition home or self-care (01) ==
LOC: DI.N 10:15
PROVIDERS: ATTEND Physician Assistant Medical
DX: R05.1 Acute cough (principal); N30.00 Acute cystitis without hematuria
CPT/HCPCS: 87086; 87181

== ENCOUNTER 2023-09-05 08:15 | Outpatient (CLI) | payer MEDICARE, OTHER ==
[2023-09-05 12:28] LABS: HCT - HEMATOCRIT 39.7 % (37.0-47.0); HGB - HEMOGLOBIN 13.4 g/dL (12.0-16.0); MEAN CORPUSCULAR HEMOGLOBIN 35.2 pg (27.0-31.0); MEAN CORPUSCULAR HGB CONC 33.8 g/dL (32.0-36.0); MEAN CORPUSCULAR VOLUME 104.2 fL (81.0-99.0); MEAN PLATELET VOLUME 10.8 fL (7.9-10.8); RED BLOOD COUNT 3.81 10^6/uL (4.20-5.40); RED CELL DISTRIBUTION WIDTH 13.7 % (12.0-15.0); WHITE BLOOD COUNT 5.2 x10^3/uL (4.8-10.8)
[2023-09-05 12:54] LABS: POTASSIUM 4.3 mmol/L (3.5-4.5)
== END 2023-09-05 08:30 | disposition home or self-care (01) ==
LOC: LAB.N 08:15
PROVIDERS: ATTEND Nurse Practitioner
DX: R60.0 Localized edema (principal)
CPT/HCPCS: 36415; 80048; 83880; 85027

== ENCOUNTER 2023-09-18 13:22 | Outpatient (CLI) | payer MEDICARE, OTHER ==
[2023-09-18 18:07] LABS: ALBUMIN 4.5 g/dL (3.2-5.5); ALBUMIN/GLOBULIN RATIO 1.6 (1.0-2.2); ALKALINE PHOSPHATASE 84 IU/L (42-121); ALT ALANINE AMINOTRANSFERASE 14 IU/L (10-60); AST ASPARTATE AMINOTRANSFERASE 15 IU/L (10-42); BILIRUBIN,TOTAL 0.4 mg/dL (0.2-1.0); BUN - BLOOD UREA NITROGEN 34 mg/dL (6-20); CALCIUM 10.2 mg/dL (8.5-10.3); CARBON DIOXIDE - CO2 27 mmol/L (21-32); CHLORIDE 103 mmol/L (101-111); CHOL/HDL RATIO 3.5 (<4.4); CHOLESTEROL 176 mg/dL; GFR - MDRD 53 (>89); GLUCOSE 222 mg/dL (74-104); HDL CHOLESTEROL 50 mg/dL; LDL CHOLESTEROL,CALCULATED 65 mg/dL; LDL/HDL RATIO 1.3 (<4.4); POTASSIUM 4.5 mmol/L (3.5-4.5); SODIUM 137 mmol/L (135-145); TOTAL PROTEIN 7.3 g/dL (6.4-8.9); TRIGLYCERIDES 304 mg/dL; VLDL CHOLESTEROL 61 mg/dL
[2023-09-18 18:24] LABS: BASOPHILS % (AUTO) 0.2 %; EOSINOPHILS % (AUTO) 0.5 %; HCT - HEMATOCRIT 39.7 % (37.0-47.0); HGB - HEMOGLOBIN 12.5 g/dL (12.0-16.0); LYMPHOCYTES # (AUTO) 2.3 10^3/uL (1.5-3.5); LYMPHOCYTES % (AUTO) 38.4 %; MEAN CORPUSCULAR HEMOGLOBIN 32.6 pg (27.0-31.0); MEAN CORPUSCULAR HGB CONC 31.5 g/dL (32.0-36.0); MEAN CORPUSCULAR VOLUME 103.4 fL (81.0-99.0); MEAN PLATELET VOLUME 10.6 fL (7.9-10.8); MONOCYTES # (AUTO) 0.5 10^3/uL (0.0-1.0); MONOCYTES % (AUTO) 8.4 %; NEUTROPHILS # (AUTO) 3.1 10^3/uL (1.5-6.6); NEUTROPHILS % (AUTO) 51.8 %; PLT - PLATELET COUNT 188 10^3/uL (130-450); RED BLOOD COUNT 3.84 10^6/uL (4.20-5.40); RED CELL DISTRIBUTION WIDTH 13.7 % (12.0-15.0)
[2023-09-18 18:26] LABS: THYROID STIMULATING HORMONE 1.27 uIU/mL (0.34-5.60)
[2023-09-18 22:02] LABS: ESTIMATED AVERAGE GLUCOSE 174 mg/dL (70-100); HEMOGLOBIN A1c% 7.7 % (4.27-6.07)
== END 2023-09-18 13:23 | disposition home or self-care (01) ==
LOC: LAB.N 13:22
PROVIDERS: ATTEND Physician Assistant
DX: E11.9 Type 2 diabetes mellitus without complications (principal)
CPT/HCPCS: 36415; 80053; 80061; 83036; 83721; 84443; 85025

== ENCOUNTER 2023-10-04 10:51 | Outpatient (CLI) | payer MEDICARE, OTHER ==
--- NOTE | 2023-10-04 21:20 | XRAY Report ---
PROCEDURE: Chest 2V INDICATIONS: COUGH TECHNIQUE: 2 views of the chest were acquired. COMPARISON: CXR 08/02/2023. FINDINGS: Surgical changes and devices: None. Lungs and pleura: No pleural effusions or pneumothorax. Lungs are clear. Mediastinum: Mediastinal contours appear normal. Heart size is normal. Bones and chest wall: No suspicious bony lesions. Overlying soft tissues appear unremarkable. IMPRESSION: No acute cardiopulmonary process. Reviewed by: Lance Thomason MD on 10/04/2023 9:18 PM PDT Approved by: Lance Thomason MD on 10/04/2023 9:18 PM PDT Station ID: [id number]
== END 2023-10-04 10:52 | disposition home or self-care (01) ==
LOC: DI 10:51
PROVIDERS: ATTEND Family Medicine
DX: R05.9 Cough, unspecified (principal)

== ENCOUNTER 2023-11-22 11:23 | Outpatient (CLI) | payer MEDICARE, OTHER ==
--- NOTE | 2023-11-22 15:25 | Ultrasound Report ---
PROCEDURE: Ankle Brachial Index INDICATIONS: BILATERAL LEG PAIN TECHNIQUE: Ankle-brachial indices were obtained bilaterally and recorded. COMPARISONS: None. FINDINGS: Right ankle brachial index (KEHINDE): 0.88 Left ankle brachial index (KEHINDE): 0.81 Triphasic waveforms in the bilateral posterior tibial arteries and dorsalis pedis arteries with rodrigo l flow velocities. IMPRESSION: Mildly reduced ankle-brachial indices bilaterally suspicious for mild peripheral arterial disease. Reviewed by: Gabriel Montero MD on 11/22/2023 3:24 PM PDT Approved by: Gabriel Montero MD on 11/22/2023 3:24 PM PDT Station ID: [id number]
== END 2023-11-22 11:24 | disposition home or self-care (01) ==
LOC: DI 11:23
PROVIDERS: ATTEND Physician Assistant
DX: M79.605 Pain in left leg (principal); M79.604 Pain in right leg
CPT/HCPCS: 93922